=== PATIENT | male | born 1970 | race Caucasian/White ===

== ENCOUNTER 2022-06-08 14:42 | Emergency (ER) | payer MEDICAID, SELFPAY ==
[2022-06-08 14:59] VITALS: BP 117/68; PULSE 94; RESP 20; TEMP 36.8; O2SAT 98; BMI 22.9
--- NOTE | 2022-06-08 15:04 | ED.GENADULT ---
HPI - General Adult General Chief complaint: Eye Problems Stated complaint: Sty on R eye Time Seen by Provider: 06/08/22 15:02 Source: patient Mode of arrival: ambulatory Limitations: no limitations History of Present Illness HPI narrative: 52 yold male presents to the ED mass on right side of face near the eye. patient denies any eye pain, redness, loss of vision, change in vision, headhache, dizziness, or recent eye trauma Review of Systems Review of Systems: near right eye mass Yes all other systems are reviewed and are negative [facility] Social History Social History Advance Directives: No Advance Directives Information Provided: Yes Physical Exam ED Vital Signs: Vital Signs - 24 hr 06/08/22 14:59 Temperature 98.2 F Pulse Rate 94 Respiratory Rate 20 Blood Pressure 117/68 Pulse Oximetry 98 Oxygen Delivery Method Room Air BMI result Body Mass Index 22.9 Const General: cooperative, healthy appearing, comfortable, no acute distress, well developed, alert, awake and Physically active Orientation/consciousness: oriented to person, oriented to place, oriented to time and patient oriented x3 HENMT Head: Yes normal to inspection, Yes No palpable skull fracture present, Yes normocephalic and Yes atraumatic Eyes Other: Neck Neck: Yes normal visual inspection, Yes full ROM, Yes no lymphadenopathy, Yes no meningeal signs, Yes trachea midline, Yes supple, No anterior neck swelling and No tender Chest Chest palpation & inspection: normal inspection of the chest and normal palpation of entire chest wall Resp Effort & Inspection: normal respiratory effort and able to speak in complete sentences Auscultation: clear to auscultation bilaterally Cardio Jugular venous distension: no JVD Heart sounds: S1 normal heart sound present and S2 normal heart sound present GI Inspection: Yes normal to inspection and No abdominal wall ecchymosis Palpation (GI): Soft to palpation, not firm, nontender, no guarding and not rigid General: No CVA tenderness and Yes no CVA tenderness Back/Spine/Pelvis Back: no CVA tenderness, No CVA tenderness and No back tenderness Skin General skin exam: no rashes or lesions noted and elasticity normal Neuro General: oriented to person, oriented to place, oriented to time, patient oriented x3, gait normal, tone normal, moves all extremities, Normal light touch and pain sensation, no meningeal signs, no focal motor deficits and CN's II-XI intact bilaterally Extrem General: Yes normal to inspection and Yes full ROM Psych Appearance: grossly normal, well kempt and not disheveled Course Course Course Narrative: NO intervention needed. Follow up with eye DOC. Reevaluation(s) Reevaluation #1: Lipoma vs skin tagg. patient informed to follow with opthomolagist Discharge Plan Discharge Clinical Impression: Eye lesion, Lipoma Patient Disposition: Home, Self-Care Instructions: Lipoma (ED), Soft Tissue Mass (ED) Additional Instructions: You need to follow-up with eye doctor for abnormal skin growth on lateral side of face near eye. Return to the ED for any increased swelling, pain, loss of vision, eye pain, redness, fever, chills, headache, dizziness, rash, or any other concerning symptoms. Referrals: Lucas Wynn [Physician] - (Eye lesion on right side. ) Interventions: ED Discharge Assessment Last Done: 06/08/22 15:18 Discharge Date/Time: 06/08/22 15:18 Print Language: Lithuanian
== END 2022-06-08 15:18 | disposition home or self-care (01) ==
PROVIDERS: Emergency Provider Emergency Medicine Emergency Medical Services
DX: D17.0 Benign lipomatous neoplasm of skin and subcutaneous tissue of head, face and neck (principal)
CPT/HCPCS: 99282